=== PATIENT | female | born 2000 | race African-American/Black ===

== ENCOUNTER 2020-02-29 14:25 | Emergency (ER) | payer MEDICAID ==
[~2020-02-29] VITALS: Ht 157.5 cm; Wt 70.8 kg
[2020-02-29 14:27] VITALS: BP_SYST 115
[2020-02-29] MEDS ORDERED: HYDROcodone/ACETAMIN 7.5-325 MG TAB PO ONE (16:00)
[2020-02-29] MEDS ORDERED: KETOROLAC TROMETHAMINE 60 MG/2 ML VIAL IM ONE (16:00)
[2020-02-29 16:27] VITALS: BP_SYST 115
== END 2020-02-29 16:27 | disposition home or self-care (01) ==
LOC: SED 14:25
DX: S89.82XA Other specified injuries of left lower leg, initial encounter (principal); M25.561 Pain in right knee; R03.0 Elevated blood-pressure reading, without diagnosis of hypertension; X50.1XXA Overexertion from prolonged static or awkward postures, initial encounter; Y93.89 Activity, other specified; Y92.89 Other specified places as the place of occurrence of the external cause; Y99.8 Other external cause status
CPT/HCPCS: 29505; 73560; 81025; 96372; 99283; J1885

== ENCOUNTER 2021-01-16 13:04 | Emergency (ER) | payer MEDICAID ==
[~2021-01-16] VITALS: Ht 157.5 cm; Wt 69.9 kg
[2021-01-16 13:33] VITALS: BP_SYST 109
[2021-01-16] MEDS ORDERED: METR500T PO (15:41)
[2021-01-16] MEDS ORDERED: FLUC200T PO (15:42)
[2021-01-16 15:56] VITALS: BP_SYST 109
== END 2021-01-16 15:55 | disposition home or self-care (01) ==
LOC: SED 13:04
DX: N76.0 Acute vaginitis (principal)
CPT/HCPCS: 81002; 81025; 87210-TC; 99284

== ENCOUNTER 2022-04-18 16:55 | Emergency (ER) | payer MEDICAID ==
[~2022-04-18] VITALS: Ht 157.5 cm; Wt 65.3 kg
[~2022-04-18 16:55] MED LIST: FLOEARD EACH EYE; FLUC200T PO; METR500T PO
[2022-04-18 17:00] VITALS: BP_SYST 131
--- NOTE | 2022-04-18 17:29 | NUR ---
Patient to ER bed H2 to gown for evaluation. Side rails up.
--- NOTE | 2022-04-18 17:45 | NUR ---
Pt bib self from work. CC finger swelling related to trauma. Pt notes clear seepage from nail bed. Pt states pain to touch and seeking medical opinion.
--- NOTE | 2022-04-18 18:09 | NUR ---
ER at bedside examining patient.
[2022-04-18] MEDS ORDERED: LIDOCAINE 1% 10 MG/ML, 20 ML MDV INJ ONE (18:15)
[2022-04-18 19:11] VITALS: BP_SYST 131
--- NOTE | 2022-04-18 19:11 | NUR ---
Patient given written and verbal discharge instructions and verbalizes understanding. ER MD discussed with patient the results and treatment provided. Patient in stable condition. ID arm band removed. Opportunity for questions provided and answered. Medication side effect fact sheet provided.
== END 2022-04-18 19:11 | disposition home or self-care (01) ==
LOC: SED 16:55
DX: S61.302A Unspecified open wound of right middle finger with damage to nail, initial encounter (principal); Z79.899 Other long term (current) drug therapy; W24.0XXA Contact with lifting devices, not elsewhere classified, initial encounter; Y93.89 Activity, other specified; Y92.89 Other specified places as the place of occurrence of the external cause; Y99.8 Other external cause status
CPT/HCPCS: 99284; 73140; 11730; J2001